=== PATIENT | male | born 1950 | race Caucasian/White ===

== ENCOUNTER 2021-12-29 09:44 | Outpatient (REF) | payer MEDICARE, OTHER, SELFPAY ==
[2021-12-29 10:13] LABS: Basophils Absolute Auto 0.03 K/uL (0.00-0.30); Basophils Percent Auto 0.3 % (0.0-3.0); Eosinophils Absolute Auto 0.48 K/uL (0.00-0.50); Eosinophils Percent Auto 5.4 % (0.0-7.0); Hematocrit 33.6 % (37.0-53.0); Hemoglobin* 11.1 gm/dL (13.5-17.5); Immature Granulocytes Abs Auto 0.01 K/uL (0.00-0.30); Immature Granulocytes Pct Auto 0.1 %; Lymphocytes Percent Auto 12.6 % (20-44); Mean Corpuscular HGB Conc 33 gm/dL (32-36); Mean Corpuscular Hemoglobin 30 pg (26-34); Mean Corpuscular Volume 92 fL (80-100); Monocytes Percent Auto 5.3 % (0.0-11.0); Neutrophils Percent Auto 76.3 % (42.0-72.0); Platelet Count* 317 K/uL (140-440); Red Blood Count 3.66 m/uL (4.30-5.90); White Blood Count* 8.94 K/uL (4.50-11.00)
[2021-12-29 10:14] LABS: Slide Review Reflex No
[2021-12-29 10:20] LABS: Chloride* 105 mmol/L (96-114); Potassium* 4.7 mmol/L (3.6-5.1); Sodium* 137 mmol/L (135-149)
[2021-12-29 10:23] LABS: Alanine Aminotransferase* 5 U/L (4-50); Carbon Dioxide* 24 mmol/L (20-32); Creatinine* 0.8 mg/dL (0.5-1.5); Estimated Glomerular Filt Rate 94 ml/min
[2021-12-29 10:24] LABS: Blood Urea Nitrogen* 24 mg/dL (7-30); Calcium* 9.1 mg/dL (8.4-10.6); Glucose* 144 mg/dL (60-115)
[2021-12-29 10:27] LABS: Hemoglobin A1C* 8.56 % (0-5.6)
== END 2021-12-29 09:45 | disposition home or self-care (01) ==
LOC: NPINS 09:44
PROVIDERS: PCP Surgery; Visit Provider Family Medicine
DX: E78.5 Hyperlipidemia, unspecified (principal); I25.10 Atherosclerotic heart disease of native coronary artery without angina pectoris; D64.9 Anemia, unspecified; E10.59 Type 1 diabetes mellitus with other circulatory complications
CPT/HCPCS: 80048; 83036; 84460; 85025

== ENCOUNTER 2022-01-13 11:57 | Outpatient (CLI) | payer MEDICARE, OTHER, SELFPAY | END 2022-01-13 11:58 | disposition home or self-care (01) | LOC: AMB 01-22 09:26 | PROVIDERS: PCP Surgery; Visit Provider Family Medicine | DX: R41.82 Altered mental status, unspecified (principal) | CPT/HCPCS: A0425; A0426; A0429 ==

== ENCOUNTER 2022-01-13 12:30 | Emergency (ER) | payer MEDICARE, OTHER, SELFPAY ==
[2022-01-13 12:43] VITALS: BP 124/65; PULSE 63; RESP 18; TEMP 36.9; O2SAT 96; BMI 21.3
--- NOTE | 2022-01-13 13:19 | CRLHL7_ITS ---
For Patients: As a result of the Cures Act, medical imaging exams and procedure reports are released immediately into your electronic medical record. You may view this report before your referring provider. If you have questions, please contact your health care provider. INDICATION: COVID. TECHNIQUE: Chest 1 views. COMPARISON: Chest x-ray from 10/22/2019. FINDINGS: Lungs: Low lung volumes limits evaluation and results in vascular crowding. No focal consolidation. Pleura: No pleural effusion or pneumothorax. Heart and Mediastinum: The cardiomediastinal silhouette is normal. The vessels are unremarkable. Bones: Unremarkable. Partially visualized left shoulder arthroplasty. IMPRESSION: No acute cardiopulmonary disease. Dictated by Thiago Fraga MD @ 01/13/2022 1:54:54 PM (Electronically Signed)
--- NOTE | 2022-01-13 13:23 | ED_ITS ---
HPI - General Adult General Time Seen by Provider: 13:23 Date Seen: 01/13/22 Chief complaint: Diabetic Related Problem Stated complaint: Hypoglycemia Time Seen by Provider: 01/13/22 12:43 Source: EMS Mode of arrival: EMS Limitations: physical limitation History of Present Illness HPI narrative: Patient is a 71-year-old white male who is in the memory care unit at [facility], he is diabetic, and had unresponsive episode this morning where his blood sugar was low in the 50s, paramedics gave him glucagon and D10 and he got markedly improved his blood sugar here is in the 80s he has a history of delusional disorder major depressive disorder Parkinson's disease he has a DNR order on his correction information. His 2 sons are here and we discussed his situation. Gerber is actually better now he is awake talking, ?asking to go home and ?. The patient was diagnosed with COVID on Tuesday, he has had no significant fevers his cough seemed to be a little bit better. Apparently did eat this morning and has been receiving insulin. Related Data Home Medications Medication Instructions Recorded Confirmed acetaminophen 500 mg tablet mg 01/13/22 aspirin 81 mg chewable tablet 01/13/22 atorvastatin 40 mg tablet mg 01/13/22 carbidopa 25 mg-levodopa 100 mg tab 01/13/22 tablet diclofenac sodium 1 % topical gel topical 01/13/22 insulin glargine 100 unit/mL (3 unit subcut 01/13/22 mL) subcutaneous pen (Lantus Solostar U-100 Insulin) insulin lispro 100 unit/mL subcut 01/13/22 subcutaneous pen lansoprazole 30 mg capsule,delayed mg 01/13/22 release melatonin 3 mg tablet mg 01/13/22 naproxen 500 mg tablet mg 01/13/22 pramipexole 0.25 mg tablet mg 01/13/22 quetiapine 25 mg tablet mg 01/13/22 trazodone 50 mg tablet mg 01/13/22 Review of Systems Narrative: Unable to obtain secondary to patient's cognitive condition PFSH PFSH Social History Smoking Status: Never smoker Do you use any of these nicotine containing products: None Second hand tobacco smoke exposure: No How often do you have a drink containing alcohol: never How often do you have six or more drinks on one occasion: Never AUDIT-C Alcohol total score: 0 Non-prescribed substance use: denies use service: No Exam Narrative: Exam Narrative: Objective: Vital signs unremarkable O2 sat is excellent at 96% patient is afebrile Gerber's alert, opens his eyes, talks, states ?I would like to get out of here?. When asked about pain he denies any Pulses regular Abdomen benign Extremities good perfusion Neurologic grossly nonfocal Const: Vital Signs, click to edit/add: Vital Signs - 24 hr 01/13/22 12:43 Temperature 98.4 F Pulse Rate [Left P ulse Oximeter] 63 Respiratory Rate 18 Blood Pressure [Le ft Upper Arm] 124/65 Pulse Oximetry 96 Oxygen Delivery Me thod Room Air Course Vital Signs Vital signs: Initial Vital Signs Temperature 98.4 F 01/13/22 12:43 Temperature Source Temporal Artery Scan 01/13/22 12:43 Pulse Rate 63 01/13/22 12:43 Pulse Rhythm 01/13/22 12:43 Pulse Strength 3+ Normal 01/13/22 12:43 Respiratory Rate 18 01/13/22 12:43 Blood Pressure 124/65 01/13/22 12:43 Blood Pressure Mean 84 01/13/22 12:43 Blood Pressure Position Sitting 01/13/22 12:43 Pulse Oximetry 96 01/13/22 12:43 Oxygen Delivery Method 01/13/22 12:43 Vital Signs Temperature 98.4 F 01/13/22 12:43 Pulse Rate 63 01/13/22 12:43 Respiratory Rate 18 01/13/22 12:43 Blood Pressure 124/65 01/13/22 12:43 Pulse Oximetry 96 01/13/22 12:43 Oxygen Delivery Method 01/13/22 12:43 Temperature 98.4 F 01/13/22 12:43 Pulse Rate 63 01/13/22 12:43 Respiratory Rate 18 01/13/22 12:43 Blood Pressure 124/65 01/13/22 12:43 Pulse Oximetry 96 01/13/22 12:43 Oxygen Delivery Method 01/13/22 12:43 Medical Decision Making MDM Narrative Medical decision making narrative: The patient is a 71 white male with Parkinson's in delusional issues with a unresponsive episode this morning likely related to hypoglycemia. He has not really been eating much since the COVID apparently and his blood sugar was lower he was given D10 and glucagon and got better. I think will allow him to be here get some IV fluid, see if he can eat something. Will check a chest x-ray and labs, give a L of IV fluid. I discussed his case with his sons were in agreement with the plan. They agree with continuing DNR planning. Do wish a workup as mentioned above. Disposition pending his findings, if he feels x-ray looks reasonable and his labs look reassuring and he can eat I think we can along go back, if not hospitalization. I think at this 0.2 would be marcelo to hold his insulin and just monitor his blood sugars and keep his primary care doctor informed of his situation, certainly I would rather have him be little hyperglycemic now than hypoglycemic if he is not eating. Addendum: The patient's chest x-ray by my read looks unremarkable, Radiology confirms. CBC looks with a mild elevation in white blood cell count consistent with his COVID infection. He is sitting up adequately and he is able to take some fluid. Will attempt to get him to eat and recheck his blood sugar shortly. If he is doing well and his labs look reassuring I think it trying go back to his home. Electrolytes look unremarkable as well. Potassium low normal. Would recommend the patient hold his insulin at this time as he has been eating intermittently, he is able to eat here as well as drink orange juice. Will long to go back to his home will make arrangements, staff will notify his son's. Blood glucose was rechecked in the ER prior to discharge it was 123 Lab Data Labs: Lab Results 01/13/22 01/13/22 Range/Units 13:50 13:50 WBC 13.04 H (4.50-11.00) K/uL RBC 3.82 L (4.30-5.90) m/uL Hgb 11.2 L (13.5-17.5) gm/dL Hct 34.9 L (37.0-53.0) % MCV 91 (80-100) fL MCH 29 (26-34) pg MCHC 32 (32-36) gm/dL RDW Coeff of Reji 12.8 (11.5-15.5) % Plt Count 295 (140-440) K/uL Neut % (Auto) 86.8 H (42.0-72.0) % Lymph % (Auto) 7.4 L (20-44) % Culberson % (Auto) 5.2 (0.0-11.0) % Eos % (Auto) 0.4 (0.0-7.0) % Baso % (Auto) 0.1 (0.0-3.0) % Neut # (Auto) 11.30 H (1.7-7.0) K/uL Lymph # (Auto) 1.00 (0.90-2.90) K/uL [place]berson # (Auto) 0.70 (0.00-0.90) K/UL Eos # (Auto) 0.10 (0.00-0.50) K/uL Baso # (Auto) 0.00 (0.00-0.30) K/uL Abs Immat Gran (auto) 0.00 (0.00-0.30) K/uL Imm/Tot Granulo (auto) 0.1 % Sodium 141 (135-149) mmol/L Potassium 3.3 L (3.6-5.1) mmol/L Chloride 106 (96-114) mmol/L Carbon Dioxide 28 (20-32) mmol/L BUN 24 (7-30) mg/dL Creatinine 0.8 (0.5-1.5) mg/dL Estimated Creat Clear 59.98 Estimated GFR 94 ml/min Glucose 127 H (60-115) mg/dL Calcium 8.9 (8.4-10.6) mg/dL Total Bilirubin 0.5 (0.1-1.5) mg/dL Direct Bilirubin 0.2 (0.0-0.5) mg/dL AST 74 H (12-35) U/L ALT 14 (4-50) U/L Alkaline Phosphatase 76 (40-150) U/L Total Protein 6.8 (6.0-8.3) g/dL Albumin 3.9 (3.3-5.0) g/dL Discharge Plan Discharge Clinical Impression: Episode of unresponsiveness, Hypoglycemic reaction Additional Instructions: Hold insulin for now. Continue to monitor blood sugars. Light activity, fluids on a regular basis, small frequent meals. Update primary care provider in 24-48 hours with blood sugar results and general disposition. Return to ED as needed. Activity Level: Light activity Discharge Diet: Diabetic Prescriptions: No Action quetiapine 25 mg tablet Label Comments: TAKE 1 TABLET BY MOUTH AT BEDTIME atorvastatin 40 mg tablet Label Comments: TAKE 1 TABLET BY MOUTH AT BEDTIME trazodone 50 mg tablet Label Comments: TAKE 1 TABLET BY MOUTH AT BEDTIME melatonin 3 mg tablet Label Comments: TAKE 1 TABLET BY MOUTH AT BEDTIME acetaminophen 500 mg tablet Label Comments: TAKE 2 TABLETS (1000MG) BY MOUTH THREE TIMES DAILY lansoprazole 30 mg capsule,delayed release(DR/EC) Label Comments: TAKE 1 CAPSULE BY MOUTH EVERY MORNING pramipexole 0.25 mg tablet aspirin 81 mg tablet,chewable Label Comments: CHEW AND SWALLOW 1 TABLET BY MOUTH EVERY MORNING carbidopa-levodopa 25-100 mg tablet Label Comments: TAKE 1 AND 1/2 TABLETS BY MOUTH FOUR TIMES DAILY naproxen 500 mg tablet insulin lispro 100 unit/mL insulin pen SUBCUT insulin glargine [Lantus Solostar U-100 Insulin] 100 unit/mL (3 mL) insulin pen SUBCUT diclofenac sodium 1 % gel TOPICAL Follow Up/Referrals: Hermelindo Paiz MD [Primary Care Provider] -
[2022-01-13] MEDS: 0.9 % SODIUM CHLORIDE 1000 ml 1,000 ML 6000 ML IV (13:59)
[2022-01-13 14:02] LABS: Basophils Percent Auto 0.1 % (0.0-3.0); Eosinophils Percent Auto 0.4 % (0.0-7.0); Hematocrit 34.9 % (37.0-53.0); Hemoglobin* 11.2 gm/dL (13.5-17.5); Immature Granulocytes Pct Auto 0.1 %; Lymphocytes Percent Auto 7.4 % (20-44); Mean Corpuscular HGB Conc 32 gm/dL (32-36); Mean Corpuscular Hemoglobin 29 pg (26-34); Mean Corpuscular Volume 91 fL (80-100); Monocytes Percent Auto 5.2 % (0.0-11.0); Neutrophils Percent Auto 86.8 % (42.0-72.0); Platelet Count* 295 K/uL (140-440); RDW Coefficient of Variation % 12.8 % (11.5-15.5); Red Blood Count 3.82 m/uL (4.30-5.90); White Blood Count* 13.04 K/uL (4.50-11.00)
[2022-01-13 14:06] LABS: Slide Review Reflex No
[2022-01-13 14:26] LABS: Albumin* 3.9 g/dL (3.3-5.0)
[2022-01-13 14:27] LABS: Chloride* 106 mmol/L (96-114); Potassium* 3.3 mmol/L (3.6-5.1); Sodium* 141 mmol/L (135-149)
[2022-01-13 14:29] LABS: Aspartate Amino Transferase* 74 U/L (12-35); Bilirubin Direct* 0.2 mg/dL (0.0-0.5); Bilirubin Total* 0.5 mg/dL (0.1-1.5); Carbon Dioxide* 28 mmol/L (20-32); Creatinine* 0.8 mg/dL (0.5-1.5); Est. Creatinine Clearance* 59.98; Estimated Glomerular Filt Rate 94 ml/min; Total Protein* 6.8 g/dL (6.0-8.3)
[2022-01-13 14:30] LABS: Alanine Aminotransferase* 14 U/L (4-50); Alkaline Phosphatase* 76 U/L (40-150); Blood Urea Nitrogen* 24 mg/dL (7-30); Calcium* 8.9 mg/dL (8.4-10.6); Glucose* 127 mg/dL (60-115)
== END 2022-01-13 15:57 | disposition home or self-care (01) ==
PROVIDERS: Emergency Provider Family Medicine; PCP Surgery
DX: E11.649 Type 2 diabetes mellitus with hypoglycemia without coma (principal); Z79.4 Long term (current) use of insulin
CPT/HCPCS: 36415; 71045; 80048; 80076; 82962; 85025; 96360; 99284; J7030

== ENCOUNTER 2022-01-13 15:35 | Outpatient (CLI) | payer MEDICARE, OTHER, SELFPAY | END 2022-01-13 15:36 | disposition home or self-care (01) | LOC: AMB 01-22 09:38 | PROVIDERS: PCP Surgery; Visit Provider Family Medicine | DX: U07.1 COVID-19 (principal) | CPT/HCPCS: A0425; A0426 ==

== ENCOUNTER 2022-01-14 02:39 | Outpatient (CLI) | payer MEDICARE, OTHER, SELFPAY | END 2022-01-14 02:40 | disposition home or self-care (01) | LOC: AMB 01-22 10:17 | PROVIDERS: PCP Surgery; Visit Provider Family Medicine | DX: S09.93XA Unspecified injury of face, initial encounter (principal); R41.82 Altered mental status, unspecified; W18.30XA Fall on same level, unspecified, initial encounter; Y92.099 Unspecified place in other non-institutional residence as the place of occurrence of the external cause | CPT/HCPCS: A0425; A0427; A0429 ==

== ENCOUNTER 2022-01-14 02:53 | Emergency (ER) | payer MEDICARE, OTHER, SELFPAY ==
[2022-01-14 02:58] VITALS: BP 140/67; PULSE 65; TEMP 36.1; O2SAT 97
--- NOTE | 2022-01-14 03:24 | ED.FALL ---
HPI - Fall General Chief Complaint: Fall/Minor Trauma Stated Complaint: fall Time Seen by Provider: 01/14/22 03:14 Source: patient and EMS Mode of arrival: EMS History of Present Illness HPI Narrative: 71-year-old male with known history of Parkinson's disease, dementia and a diagnosis of COVID 4 days ago presents to the emergency department after a fall. He lives next door at a [facility] care facility. He was found on the floor responsive by staff. He had been evaluated earlier today after a brief episode of mild hypoglycemia. Extensive workup is reviewed. Notes are reviewed. He had mild leukocytosis at the time but no other localizing symptoms of infection besides COVID. He continues to have no dyspnea. He has persistent weakness. We were told that he is wheelchair bound at baseline and does not transfer without assistance. He is not complaining of any pain. He sleeping comfortably when I entered the room and arouses to voice to answer questions. Per EMS team, they did not get a report of any signs of obvious fracture or complaints of pain. There are abrasions present on his skin which the nursing staff reported to them was new. EMS team and our entire staff look at these and see a minimum of several days of healing and obviously these are not new. No new areas of bleeding, injury. He denies other acute concerns today. Per nursing staff from [facility], is at neurological baseline. Past medical history is pretty extensive notable for Parkinson's disease, dementia, diabetes. His medications are reviewed and unchanged from less than 24 hours ago. Surgical history, social history noted. He is DNR. Related Data Home Medications Medication Instructions Recorded Confirmed acetaminophen 500 mg tablet mg 01/13/22 aspirin 81 mg chewable tablet 01/13/22 atorvastatin 40 mg tablet mg 01/13/22 carbidopa 25 mg-levodopa 100 mg tab 01/13/22 tablet diclofenac sodium 1 % topical gel topical 01/13/22 insulin glargine 100 unit/mL (3 unit subcut 01/13/22 mL) subcutaneous pen (Lantus Solostar U-100 Insulin) insulin lispro 100 unit/mL subcut 01/13/22 subcutaneous pen lansoprazole 30 mg capsule,delayed mg 01/13/22 release melatonin 3 mg tablet mg 01/13/22 naproxen 500 mg tablet mg 01/13/22 pramipexole 0.25 mg tablet mg 01/13/22 quetiapine 25 mg tablet mg 01/13/22 trazodone 50 mg tablet mg 01/13/22 Allergies Allergy/AdvReac Type Severity Reaction Status Date / Time Penicillins Allergy Unknown Verified 01/14/22 03:02 Review of Systems Narrative: Patient denies times 12 systems. [facility] Social History Smoking Status: Never smoker Do you use any of these nicotine containing products: None Second hand tobacco smoke exposure: No How often do you have a drink containing alcohol: never How often do you have six or more drinks on one occasion: Never AUDIT-C Alcohol total score: 0 Non-prescribed substance use: denies use service: No Exam Const: Vital Signs, click to edit/add: Vital Signs - 24 hr 01/14/22 02:58 01/14/22 03:37 Temperature 97.0 F L Pulse Rate [Left P ulse Oximeter] 65 65 Blood Pressure [Ri ght Upper Arm] 140/67 H 145/83 H Pulse Oximetry 97 99 Oxygen Delivery Me thod Room Air Room Air Documenting provider has reviewed patient's vital signs: yes Other: Appears clean and well kept. Sleeping comfortably in arouses easily to voice. He can answer simple questions about pain but is confused on some details which long-term staff reported was his baseline to EMS. HENMT: Common normals: normocephalic Head and scalp: normocephalic Mouth: oral and palatal mucosa normal Other: No signs of tongue biting or dental injury Eye: Common normals: conjunctivae normal and no scleral icterus Conjunctiva: conjunctiva(e) normal Other: Normal visual gaze and tracking, pupils equal Neck & C-Spine: Other: Nontender cervical spine with normal rotation Resp: Common normals: normal respiratory effort, no use of accessory muscles and clear to auscultation bilaterally Auscultation: clear to auscultation bilaterally Cardio: Common normals: regular rate, regular rhythm, S1 normal heart sound, S2 normal heart sound, no murmurs and peripheral pulses 2+ throughout Rate: regular rate Rhythm: regular rhythm Heart sounds: S1 normal and S2 normal Peripheral pulses: pulses 2+ throughout GI: Common normals: Normal to inspection, nondistended, normoactive bowel sounds present and soft to palpation Palpation: soft Back & Pelvis: Other: Palpation of pelvis hips clavicles and shoulder girdles without tenderness. Flexed and rotated at the hip with no significant tenderness. Old surgical scarring noted on lateral left hip and knee. Certainly no deformity in these areas and as stated no point bony tenderness. I do not think any further workup in those areas will be beneficial. Extremity: Common normals: no pedal edema Neuro: Other: Tremor and rigidity consistent with known Parkinson's disease. He can move his upper extremities on command can wiggle his toes symmetrically on command. Will turn his head to voice and reposition himself gently for comfort in the bed. Certainly detect underlying dementia but no obvious focal acute deficits Skin: Narrative: Abrasions on the chest, forearms, bruise to left forehead, abrasion to left knee at least a few days old, healing well with no significant surrounding redness. As stated, none of these are new. They are in various stages of healing with the left knee being the most recent but does not appear consistent with having been torn within the last couple of hours as reported by Memory Care staff. This will be cleaned and dressed by our assessment technician. Discussed findings with patient. Course Course Hospital Course: Labs extensively reviewed from earlier today, no signs of new trauma or injury. Resting comfortably can answer questions reasonably with no localizing areas of pain. He is not hypoxic, tachycardic, hypotensive and his EKG is normal. He is DNR. I do not see any reason for further workup. My repeat exam is similar to my initial, repeated 15 minutes later. Discussed the abrasions on the left knee and how I suspect these may cause him more tenderness. He tells me stories about having surgeries on this side and that is consistent with his surgical scarring. I let him know that I do not think any further workup will be necessary in he nods in agreement drifts back to sleep. He has not been given any medication that would be distracting from injury tonight. Recommend transfer back to his memory care facility, continued fall precautions. If family has ongoing concerns for his safety, they should look into a higher level of care. It will be very difficult to prevent falls in this demented patient. Vital Signs Vital signs: Initial Vital Signs Temperature 97.0 F L 01/14/22 02:58 Temperature Source Temporal Artery Scan 01/14/22 02:58 Pulse Rate 65 01/14/22 02:58 Blood Pressure 140/67 H 01/14/22 02:58 Blood Pressure Mean 91 01/14/22 02:58 Blood Pressure Position Supine 01/14/22 02:58 Pulse Oximetry 97 01/14/22 02:58 Oxygen Delivery Method 01/14/22 02:58 Vital Signs Temperature 97.0 F L 01/14/22 02:58 Pulse Rate 65 01/14/22 02:58 Blood Pressure 140/67 H 01/14/22 02:58 Pulse Oximetry 97 01/14/22 02:58 Oxygen Delivery Method 01/14/22 02:58 Temperature 97.0 F L 01/14/22 02:58 Pulse Rate 65 01/14/22 03:37 Blood Pressure 145/83 H 01/14/22 03:37 Pulse Oximetry 99 01/14/22 03:37 Oxygen Delivery Method 01/14/22 03:37 MDM - Fall Medical Records Attestation: I reviewed the patient's medical records. Lab Data Attestation: I reviewed the patient's lab results. ECG Data Attestation: I personally reviewed and interpreted this ECG as follows: Prior ECG tracings: available for review Interpretation: Normal sinus rhythm with normal axis. No ST or T-wave abnormalities. Good R-wave progression. Discharge Plan Discharge Clinical Impression: Fall Patient Disposition: Xfer Other Condition: Stable Instructions: Fall Prevention for Older Adults (ED) Additional Instructions: Vital signs of blood sugars are stable. There do not appear to be any new injuries from the fall. The abrasions that were pointed out are in various stages of healing and none appear consistent with a new fall. Initial and repeat examinations did not reveal any point bony tenderness to the pelvis, hips, knees, spine or shoulders. Because of this, x-rays were not performed. EKG was normal. There is no reason to repeat the labs that were performed less than 24 hours ago since vitals are stable and he is not complaining of pain. I do have concerns about his ability to be cared for in this setting. It will be very difficult to prevent falls in this patient with dementia, he may require a higher level of care. He will continue to be weak due to his Parkinson's disease, cognitive issues and COVID. There is no hypoxia that would suggest a need for hospitalization. Continue previously written orders and plan of care. Apply antibiotic ointment and dressing to abrasions on knee only once daily for the next 10 days, all other lesions should heal without difficulty. Follow-up with primary care provider for any ongoing issues. Activity Level: Activity as Tolerated and Up with assist Discharge Diet: Regular Prescriptions: No Action quetiapine 25 mg tablet Label Comments: TAKE 1 TABLET BY MOUTH AT BEDTIME atorvastatin 40 mg tablet Label Comments: TAKE 1 TABLET BY MOUTH AT BEDTIME trazodone 50 mg tablet Label Comments: TAKE 1 TABLET BY MOUTH AT BEDTIME melatonin 3 mg tablet Label Comments: TAKE 1 TABLET BY MOUTH AT BEDTIME acetaminophen 500 mg tablet Label Comments: TAKE 2 TABLETS (1000MG) BY MOUTH THREE TIMES DAILY lansoprazole 30 mg capsule,delayed release(DR/EC) Label Comments: TAKE 1 CAPSULE BY MOUTH EVERY MORNING pramipexole 0.25 mg tablet aspirin 81 mg tablet,chewable Label Comments: CHEW AND SWALLOW 1 TABLET BY MOUTH EVERY MORNING carbidopa-levodopa 25-100 mg tablet Label Comments: TAKE 1 AND 1/2 TABLETS BY MOUTH FOUR TIMES DAILY naproxen 500 mg tablet insulin lispro 100 unit/mL insulin pen SUBCUT insulin glargine [Lantus Solostar U-100 Insulin] 100 unit/mL (3 mL) insulin pen SUBCUT diclofenac sodium 1 % gel TOPICAL Stand Alone Forms: [facility] Info Instructions
[2022-01-14 03:37] VITALS: BP 145/83; PULSE 65; O2SAT 99
--- NOTE | 2022-01-14 03:47 | ED.NURSE ---
Pt abrasions cleaned by INSPECTOR CIRCUITRY NEGATIVE with gauze and wound industrial sweeper cleaner spray. INSPECTOR CIRCUITRY NEGATIVE applied bacitracin and tegaderm to open abrasions on pt L knee, L elbow, and L shoulder.
--- NOTE | 2022-01-14 03:50 | ED.NURSE ---
Contact made with Brandee, aviation operations specialist RN. Informed MD exam found no injuries. Pt is cleared to go back to [facility].
== END 2022-01-14 04:15 | disposition other institution (70) ==
LOC: ED 03:37
PROVIDERS: Emergency Provider Family Medicine; PCP Surgery
DX: R53.1 Weakness (principal)
CPT/HCPCS: 93005; 99281

== ENCOUNTER 2022-01-14 14:34 | Outpatient (CLI) | payer MEDICARE, OTHER, SELFPAY | END 2022-01-14 14:35 | disposition home or self-care (01) | LOC: AMB 01-22 10:23 | PROVIDERS: PCP Surgery; Visit Provider Emergency Medicine | DX: R53.83 Other fatigue (principal); U07.1 COVID-19; E11.649 Type 2 diabetes mellitus with hypoglycemia without coma | CPT/HCPCS: A0425; A0429 ==

== ENCOUNTER 2022-01-14 14:56 | Inpatient (IN) | payer MEDICARE, OTHER, SELFPAY ==
[2022-01-14] VITALS (20 sets, daily range): BP systolic 128–164; BP diastolic 71–109; PULSE 70–81; RESP 18; TEMP 36.3–37; O2SAT 88–99; BMI 25.8; BMI 26.1
--- NOTE | 2022-01-14 16:10 | ED.GENADULT ---
HPI - General Adult General Time Seen by Provider: 16:10 Date Seen: 01/14/22 Chief complaint: Weakness Stated complaint: Covid, lethargy Time Seen by Provider: 01/14/22 16:04 Source: patient, RN notes reviewed and old records reviewed Mode of arrival: EMS Limitations: no limitations History of Present Illness HPI narrative: 71-year-old male who presents today with generalized weakness. Note 3rd visit in the past 24 hours with various weakness, fall. Patient was diagnosed with COVID on January 11 and was starting to feel better prior to yesterday. Related Data Home Medications Medication Instructions Recorded Confirmed acetaminophen 500 mg tablet mg 01/13/22 aspirin 81 mg chewable tablet 01/13/22 atorvastatin 40 mg tablet mg 01/13/22 carbidopa 25 mg-levodopa 100 mg tab 01/13/22 tablet diclofenac sodium 1 % topical gel topical 01/13/22 insulin glargine 100 unit/mL (3 unit subcut 01/13/22 mL) subcutaneous pen (Lantus Solostar U-100 Insulin) insulin lispro 100 unit/mL subcut 01/13/22 subcutaneous pen lansoprazole 30 mg capsule,delayed mg 01/13/22 release melatonin 3 mg tablet mg 01/13/22 naproxen 500 mg tablet mg 01/13/22 pramipexole 0.25 mg tablet mg 01/13/22 quetiapine 25 mg tablet mg 01/13/22 trazodone 50 mg tablet mg 01/13/22 Allergies Allergy/AdvReac Type Severity Reaction Status Date / Time Penicillins Allergy Unknown Verified 01/14/22 15:01 Review of Systems Status of ROS: Reports: 10 or more systems reviewed and unremarkable except as noted in History and below PFSH PFS Social History Smoking Status: Never smoker Do you use any of these nicotine containing products: None Second hand tobacco smoke exposure: No How often do you have a drink containing alcohol: never How often do you have six or more drinks on one occasion: Never AUDIT-C Alcohol total score: 0 Non-prescribed substance use: denies use service: No Exam Narrative: Exam Narrative: General: Well-developed and well-nourished, no acute distress Head: Atraumatic and normocephalic Eyes: Pupils are equal reactive, extraocular motions intact, conjunctiva clear ENT: External nose and ears are normal, posterior pharynx without erythema or exudate Neck: No midline cervical tenderness, full spontaneous range of motion the neck, trachea midline, no adenopathy Heart: Regular rate and rhythm no murmurs or thrills Lungs: Clear to auscultation bilaterally without wheezes or crackles Abdomen: Soft, nontender, nondistended with active bowel sounds Musculoskeletal: No tenderness, deformity, or edema Neurologic: Awake, alert, no gross focal neurologic deficits, cranial nerves intact as tested Psych: Mood and affect are appropriate Skin: No rashes, pale Const: Vital Signs, click to edit/add: Vital Signs - 24 hr 01/14/22 15:02 01/14/22 15:23 01/14/22 15:30 Temperature 97.3 F L Pulse Rate 80 71 Pulse Rate [Pulse Oximeter] 76 Respiratory Rate 18 Blood Pressure Blood Pressure [18 ] 131/71 Pulse Oximetry 98 99 98 Oxygen Delivery Me thod Room Air 01/14/22 15:37 01/14/22 16:00 01/14/22 16:02 Temperature Pulse Rate 72 72 70 Pulse Rate [Pulse Oximeter] Respiratory Rate Blood Pressure 152/83 H 154/87 H Blood Pressure [18 ] Pulse Oximetry 98 98 98 Oxygen Delivery Me thod 01/14/22 16:03 01/14/22 16:30 01/14/22 16:31 Temperature Pulse Rate 71 73 76 Pulse Rate [Pulse Oximeter] Respiratory Rate Blood Pressure 158/89 H Blood Pressure [18 ] Pulse Oximetry 98 93 88 Oxygen Delivery Me thod 01/14/22 17:00 01/14/22 17:01 Temperature Pulse Rate 75 75 Pulse Rate [Pulse Oximeter] Respiratory Rate Blood Pressure 164/86 H Blood Pressure [18 ] Pulse Oximetry 96 95 Oxygen Delivery Me thod Course Course Hospital Course: Patient seen and examined prior records reviewed. Patient is here for third visit in 24 hours various complaints related to weakness, was hypoglycemic previously but blood sugar is normal this time. No fever, no hypoxia. Patient is unable to provide much history. Per EMS, when they arrived patient's room and not been clean from on the dropped him off at about 2:00 a.m. this morning. Family is concerned about cared issues too fatigued to really take care of himself right now. Patient himself has no complaints but unreliable historian. Labs and head CT are ordered due to head injury prior, IV fluids initiated. Reevaluation(s) Reevaluation #1: Labs so far reassuring with normal white blood cell count, stable hemoglobin, normal basic metabolic panel other than glucose of 133. Troponin is negative. Urinalysis and head CT are pending. Time: 17:55 Reevaluation #2: Care discussed with Dr. Pena for admission. Time: 17:55 Vital Signs Vital signs: Initial Vital Signs Temperature 97.3 F L 01/14/22 15:02 Temperature Source Temporal Artery Scan 01/14/22 15:02 Pulse Rate 76 01/14/22 15:02 Pulse Rhythm 01/14/22 15:02 Respiratory Rate 18 01/14/22 15:02 Blood Pressure 131/71 01/14/22 15:02 Blood Pressure Mean 91 01/14/22 15:02 Blood Pressure Position Supine 01/14/22 15:02 Pulse Oximetry 98 01/14/22 15:02 Oxygen Delivery Method 01/14/22 15:02 Vital Signs Temperature 97.3 F L 01/14/22 15:02 Pulse Rate 76 01/14/22 15:02 Respiratory Rate 18 01/14/22 15:02 Blood Pressure 131/71 01/14/22 15:02 Pulse Oximetry 98 01/14/22 15:02 Oxygen Delivery Method 01/14/22 15:02 Temperature 97.3 F L 01/14/22 15:02 Pulse Rate 75 01/14/22 17:01 Respiratory Rate 18 01/14/22 15:02 Blood Pressure 164/86 H 01/14/22 17:01 Pulse Oximetry 95 01/14/22 17:01 Oxygen Delivery Method 01/14/22 15:02 Medical Decision Making Medical Records Medical records reviewed: Yes I reviewed the patient's medical records Lab Data Lab results reviewed: Yes I reviewed the patient's lab results Labs: Lab Results 01/14/22 01/14/22 01/14/22 Range/Units 16:26 16:50 16:50 WBC 7.00 (4.50-11.00) K/uL RBC 3.94 L (4.30-5.90) m/uL Hgb 11.5 L (13.5-17.5) gm/dL Hct 35.6 L (37.0-53.0) % MCV 90 (80-100) fL MCH 29 (26-34) pg MCHC 32 (32-36) gm/dL RDW Coeff of Reji 12.7 (11.5-15.5) % Plt Count 296 (140-440) K/uL Neut % (Auto) 71.3 (42.0-72.0) % Lymph % (Auto) 18.4 L (20-44) % Grady % (Auto) 6.6 (0.0-11.0) % Eos % (Auto) 3.3 (0.0-7.0) % Baso % (Auto) 0.1 (0.0-3.0) % Neut # (Auto) 4.99 (1.7-7.0) K/uL Lymph # (Auto) 1.30 (0.90-2.90) K/uL Grady # (Auto) 0.50 (0.00-0.90) K/UL Eos # (Auto) 0.23 (0.00-0.50) K/uL Baso # (Auto) 0.01 (0.00-0.30) K/uL Abs Immat Gran (auto) 0.02 (0.00-0.30) K/uL Imm/Tot Granulo (auto) 0.3 % Sodium 139 (135-149) mmol/L Potassium 4.3 (3.6-5.1) mmol/L Chloride 106 (96-114) mmol/L Carbon Dioxide 28 (20-32) mmol/L BUN 16 (7-30) mg/dL Creatinine 0.7 (0.5-1.5) mg/dL Estimated Creat Clear 68.94 Estimated GFR 98 ml/min Glucose 133 H (60-115) mg/dL Calcium 8.6 (8.4-10.6) mg/dL NT-Pro-B Natriuret Pep 464 H (0-125) PG/mL Urine Color (Yellow) Urine Appearance (Clear) Urine pH (5.0-8.5) Ur Specific [place] (1.000-1.030) Urine Protein (Negative) Urine Glucose (UA) (Negative) Urine Ketones (Negative) Urine Blood (Negative) Urine Nitrite (Negative) Urine Bilirubin (Negative) Urine Urobilinogen (0.2-1.0) Ur Leukocyte Esterase (Negative) Urine RBC (0-2) Urine WBC (0-5) Ur Squamous Epith Cells (None-Few) Urine Bacteria (None) POC Troponin I 0.01 (0.01-0.04) ng/ml 01/14/22 Range/Units 17:58 WBC (4.50-11.00) K/uL RBC (4.30-5.90) m/uL Hgb (13.5-17.5) gm/dL Hct (37.0-53.0) % MCV (80-100) fL MCH (26-34) pg MCHC (32-36) gm/dL RDW Coeff of Reji (11.5-15.5) % Plt Count (140-440) K/uL Neut % (Auto) (42.0-72.0) % Lymph % (Auto) (20-44) % [place] % (Auto) (0.0-11.0) % Eos % (Auto) (0.0-7.0) % Baso % (Auto) (0.0-3.0) % Neut # (Auto) (1.7-7.0) K/uL Lymph # (Auto) (0.90-2.90) K/uL [place] # (Auto) (0.00-0.90) K/UL Eos # (Auto) (0.00-0.50) K/uL Baso # (Auto) (0.00-0.30) K/uL Abs Immat Gran (auto) (0.00-0.30) K/uL Imm/Tot Granulo (auto) % Sodium (135-149) mmol/L Potassium (3.6-5.1) mmol/L Chloride (96-114) mmol/L Carbon Dioxide (20-32) mmol/L BUN (7-30) mg/dL Creatinine (0.5-1.5) mg/dL Estimated Creat Clear Estimated GFR ml/min Glucose (60-115) mg/dL Calcium (8.4-10.6) mg/dL NT-Pro-B Natriuret Pep (0-125) PG/mL Urine Color Yellow (Yellow) Urine Appearance Clear (Clear) Urine pH 8.0 (5.0-8.5) Ur Specific [place] 1.020 (1.000-1.030) Urine Protein Negative (Negative) Urine Glucose (UA) Negative (Negative) Urine Ketones 2+ A (Negative) Urine Blood Negative (Negative) Urine Nitrite Negative (Negative) Urine Bilirubin Negative (Negative) Urine Urobilinogen 0.2 (0.2-1.0) Ur Leukocyte Esterase Negative (Negative) Urine RBC 0-2 (0-2) Urine WBC 0-2 (0-5) Ur Squamous Epith Cells None (None-Few) Urine Bacteria None (None) POC Troponin I (0.01-0.04) ng/ml Imaging Data CT scan - head: Attestation: I have reviewed the pertinent imaging results. My impression: No acute intracranial findings Radiologist's impression: Impression: Age-related and chronic small-vessel disease changes of the brain without acute intracranial abnormality. Discharge Plan Discharge Clinical Impression: COVID, Diabetes, General weakness Patient Disposition: Admitted As Inpatient Condition: Stable
[2022-01-14 17:00] LABS: Basophils Absolute Auto 0.01 K/uL (0.00-0.30); Basophils Percent Auto 0.1 % (0.0-3.0); Eosinophils Absolute Auto 0.23 K/uL (0.00-0.50); Eosinophils Percent Auto 3.3 % (0.0-7.0); Hematocrit 35.6 % (37.0-53.0); Hemoglobin* 11.5 gm/dL (13.5-17.5); Immature Granulocytes Abs Auto 0.02 K/uL (0.00-0.30); Immature Granulocytes Pct Auto 0.3 %; Lymphocytes Percent Auto 18.4 % (20-44); Mean Corpuscular HGB Conc 32 gm/dL (32-36); Mean Corpuscular Hemoglobin 29 pg (26-34); Mean Corpuscular Volume 90 fL (80-100); Monocytes Percent Auto 6.6 % (0.0-11.0); Neutrophils Absolute Auto 4.99 K/uL (1.7-7.0); Neutrophils Percent Auto 71.3 % (42.0-72.0); Platelet Count* 296 K/uL (140-440); RDW Coefficient of Variation % 12.7 % (11.5-15.5); Red Blood Count 3.94 m/uL (4.30-5.90); Slide Review Reflex No
[2022-01-14] MEDS: 0.9 % SODIUM CHLORIDE 1000 ml 1,000 ML IV (17:04)
--- NOTE | 2022-01-14 17:04 | CRLHL7_ITS ---
For Patients: As a result of the Century Cures Act, medical imaging exams and procedure reports are released immediately into your electronic medical record. You may view this report before your referring provider. If you have questions, please contact your health care provider. Indication: Head injury, weakness Technique: Volumetric multidetector CT images of the head were obtained without the administration of low osmolar intravenous contrast. Comparison: CT head May 05, 2019 Findings: There is no intra-axial or extra-axial fluid collection. There is no mass effect or midline shift. There is age-related cortical atrophy with mild sulcal widening and ex vacuo dilatation of the lateral ventricles. There are chronic small vessel disease changes in the subcortical and periventricular white matter without lost andrew-white differentiation. The orbits and their contents are grossly within normal limits. The bony calvarium is grossly intact. There is moderate mucosal thickening seen throughout the paranasal sinuses. The mastoid air cells are well aerated. Impression: Age-related and chronic small-vessel disease changes of the brain without acute intracranial abnormality. Please note that all CT scans at this facility use dose modulation, iterative reconstruction, and/or weight-based dosing when appropriate to reduce radiation dose to as low as reasonably achievable. Dictated by Chava Pardo MD @ 01/14/2022 6:31:16 PM (Electronically Signed)
[2022-01-14 17:14] LABS: Chloride* 106 mmol/L (96-114); Potassium* 4.3 mmol/L (3.6-5.1); Sodium* 139 mmol/L (135-149)
[2022-01-14 17:15] LABS: Troponin, Point-of-Care* 0.01 ng/ml (0.01-0.04)
[2022-01-14 17:17] LABS: Blood Urea Nitrogen* 16 mg/dL (7-30); Carbon Dioxide* 28 mmol/L (20-32); Creatinine* 0.7 mg/dL (0.5-1.5); Est. Creatinine Clearance* 68.94; Estimated Glomerular Filt Rate 98 ml/min; Glucose* 133 mg/dL (60-115)
[2022-01-14 17:18] LABS: Calcium* 8.6 mg/dL (8.4-10.6)
[2022-01-14 17:27] LABS: NT Pro B Type NatriureticPept* 464 PG/mL (0-125)
--- NOTE | 2022-01-14 18:01 | W.PC.EDHO ---
Primary Language: Kazakh Preferred Language: Orientation Status: [] Alert & Oriented [] Slight Confusion [x] Known Dx Dementia Transfers By: [] Assist of 1 [x] Assist of 2 [] Lift Active Medications Discontinued Medications Generic Name Dose Route Start Last Admin Trade Name Coy PRN Reason Stop Dose Admin Sodium Chloride 1,000 mls @ 1,000 mls/hr 01/14/22 16:30 01/14/22 17:04 0.9 % Sodium Chloride 1000 Ml IV 01/14/22 17:29 1,000 mls/hr .Q1H SRINIVAS Administration Description of Symptoms ED Triage Present Problem known covid positive-since 01/10/22. [facility] does need memory care. has been frequenting the ed, 3 times in the last 24 hours. has had low bs, at 1207 bs was 66. insulin is being held. was seen this am at 0200 for a fall. has multiple scrapes and abrasion. has been incontinent of stool and urine. was too weak to stand this afternoon to be cleaned up. family wants him admitted. needs more care than the assistive living could provide. ED Triage Date of Onset of 01/13/22 Symptoms Female History Patient IV Insertion/Site Date of IV Line Insertion [ 01/14/22 Right Hand] Oxygen Administration Pulse Oximetry 95 Pulse Oximetry 96 Pulse Oximetry 88 Pulse Oximetry 93 Pulse Oximetry 98 Pulse Oximetry 98 Pulse Oximetry 98 Pulse Oximetry 98 Pulse Oximetry 98 Pulse Oximetry 99 Pulse Oximetry 98 Oxygen Delivery Method Room Air Cardiac Monitoring EKG Method 12 Lead
[2022-01-14 18:09] LABS: Appearance Urine Clear (Clear); Bilirubin Urine Negative (Negative); Blood Urine Negative (Negative); Color Urine Yellow (Yellow); Glucose Urine Negative (Negative); Ketones Urine 2+ (Negative); Leukocyte Esterase Urine Negative (Negative); Nitrite Urine Negative (Negative); Protein Urine Negative (Negative); Urobilinogen Urine 0.2 (0.2-1.0)
[2022-01-14 18:28] LABS: RBC Urine 0-2 (0-2); WBC Urine 0-2 (0-5)
--- NOTE | 2022-01-14 19:27 | PM.IMHP1 ---
Hospitalist- H&P: HPI History of Present Illness Time Seen by Provider: 18:30 Date Seen: 01/14/22 Chief complaint: Covid, lethargy Narrative: Gerber Greco is a 71 year old man who presents to our Emergency Department for assessment for the 3rd time in less than 24 hours. Initially he presented with symptomatic hypoglycemia. Insulin doses were adjusted and he was no longer symptomatic with hypoglycemia at time of discharge back to the assisted living center. Secondly he returned earlier this morning after a fall in which he sustained abrasions and assessment was otherwise unremarkable. He was again return back to the assisted living center. This afternoon he presents so weak that he can not even move out of his recliner chair. The EMS staff who were summoned to bring him in this afternoon or the same individuals who dropped him off earlier this morning after he was seen in the emergency department, and they note that he was in the same position that they put him in when they brought him back later this morning. Patient was in his usual state of health until 01/11/2022 when he was not feeling well and he was tested for COVID-19 and found to be infected with the SARS-CoV-2. Was not offered treatment. Has not received any treatment. Nevertheless his weakness has been progressive as briefly outlined above. This afternoon he is so weak that he can hardly move. He needs total assist with transferring from supine to sitting, and does not even to transfer from sitting to standing despite assistance. Review of Systems Status of ROS: Reports: 10 or more systems reviewed and unremarkable except as noted in History and below Narrative: He tells me he can not take it anymore. He tells me he just wants to . Does have a DNR DNI resuscitation status. He reiterates this. I speak with his eldest son via telephone, who indicates that is exactly his father's intervention plan. Is not suicidal or homicidal. He makes it clear nonetheless that he is ready to if need be. Denies any chest heaviness, pressure, tightness, or pain. Denies dyspnea at rest or paroxysmal nocturnal dyspnea orthopnea. Denies syncope or near-syncope. Denies nausea or vomiting. Tells me he is hungry and wants to eat. Denies palpitations or chest fluttering. No claudication. Bowel and bladder function satisfactory. Denies dysuria, urgency, frequency, hematuria. Denies diarrhea or constipation. No focal motor neurologic deficits per se. [facility] Medical History (Updated 01/14/22 @ 19:40 by Chinedu Pena MD) Adenomatous colon polyp Barretts esophagus Coronary artery disease Diabetes mellitus type 2 with complications Hyperlipidemia Osteoarthritis Parkinson disease Sciatica Sensorineural hearing loss Unstable gait Surgical History H/O vasectomy History of carpal tunnel release Status post hip surgery Family History Father Diabetes High blood pressure Mother Diabetes Stroke Social History Smoking Status: Never smoker Do you use any of these nicotine containing products: None Second hand tobacco smoke exposure: No How often do you have a drink containing alcohol: never How often do you have six or more drinks on one occasion: Never AUDIT-C Alcohol total score: 0 Non-prescribed substance use: denies use service: No Meds Home Medications and Allergies Home Medications Medication Instructions Recorded Confirmed Type acetaminophen 500 mg tablet mg 01/13/22 History aspirin 81 mg chewable tablet 01/13/22 History atorvastatin 40 mg tablet mg 01/13/22 History carbidopa 25 mg-levodopa 100 mg tab 01/13/22 History tablet diclofenac sodium 1 % topical gel topical 01/13/22 History insulin glargine 100 unit/mL (3 unit subcut 01/13/22 History mL) subcutaneous pen (Lantus Solostar U-100 Insulin) insulin lispro 100 unit/mL subcut 01/13/22 History subcutaneous pen lansoprazole 30 mg capsule,delayed mg 01/13/22 History release melatonin 3 mg tablet mg 01/13/22 History naproxen 500 mg tablet mg 01/13/22 History pramipexole 0.25 mg tablet mg 01/13/22 History quetiapine 25 mg tablet mg 01/13/22 History trazodone 50 mg tablet mg 01/13/22 History Allergies Allergy/AdvReac Type Severity Reaction Status Date / Time Penicillins Allergy Unknown Verified 01/14/22 15:01 Exam Narrative: Exam Narrative: Appears tired. Speech is soft and mumbled, not new. Alert and oriented to self and place not to time and only in part to situation. Articulate and cooperative. Difficult to understand his sentences because of his mobile speech but can make out most of it. Lungs are clear to auscultation. Heart tones with regular rhythm. Extremities without edema. Has multiple abrasions on various areas on his body from recent falls. Const: Vital Signs, click to edit/add: Vital Signs - 24 hr 01/14/22 15:02 01/14/22 15:23 01/14/22 15:30 Temperature 97.3 F L Pulse Rate 80 71 Pulse Rate [Pulse Oximeter] 76 Respiratory Rate 18 Blood Pressure Blood Pressure [18 ] 131/71 Pulse Oximetry 98 99 [facility] 01/14/22 15:37 01/14/22 16:00 01/14/22 16:02 Temperature Pulse Rate 72 72 70 Pulse Rate [Pulse Oximeter] Respiratory Rate Blood Pressure 152/83 H 154/87 H Blood Pressure [18 ] Pulse Oximetry 98 98 98 Oxygen Delivery [facility] 01/14/22 16:03 01/14/22 16:30 01/14/22 16:31 Temperature Pulse Rate 71 73 76 Pulse Rate [Pulse Oximeter] Respiratory Rate Blood Pressure 158/89 H Blood Pressure [18 ] Pulse Oximetry 98 93 88 Oxygen Delivery [facility] 01/14/22 17:00 01/14/22 17:01 01/14/22 17:02 Temperature Pulse Rate 75 75 75 Pulse Rate [Pulse Oximeter] Respiratory Rate Blood Pressure 164/86 H Blood Pressure [18 ] Pulse Oximetry 96 95 97 Oxygen Delivery [facility] 01/14/22 17:30 01/14/22 17:32 01/14/22 18:03 Temperature Pulse Rate 80 78 80 Pulse Rate [Pulse Oximeter] Respiratory Rate Blood Pressure 160/82 H Blood Pressure [18 ] Pulse Oximetry 98 98 99 Oxygen Delivery [facility] 01/14/22 18:32 Temperature Pulse Rate Pulse Rate [Pulse Oximeter] Respiratory Rate Blood Pressure 160/109 H Blood Pressure [18 ] Pulse Oximetry [facility] - H&[facility]: Result Labs Labs: Short CBC 01/14/22 Range/Units 16:50 WBC 7.00 (4.50-11.00) K/uL Hgb 11.5 L (13.5-17.5) gm/dL Hct 35.6 L (37.0-53.0) % Plt Count 296 (140-440) K/uL BMP 01/14/22 16:50 Sodium 139 Potassium 4.3 Chloride 106 Carbon Dioxide 28 BUN 16 Creatinine 0.7 Glucose 133 H Calcium 8.6 Urine 01/14/22 Range/Units 17:58 Urine Color Yellow (Yellow) Urine Appearance Clear (Clear) Urine pH 8.0 (5.0-8.5) Ur Specific [place] 1.020 (1.000-1.030) Urine Protein Negative (Negative) Urine Glucose (UA) Negative (Negative) Imaging CT scan - head: Attestation: I have reviewed the pertinent imaging results. Radiologist's impression: Age-related changes only otherwise unremarkable. Assessment and Plan Assessment and plan (1) General weakness: Status: Acute (2) COVID: Problem comment: Diagnosed 01/11/2022 Status: Acute (3) Fall: Problem comment: 01/14/2022, sustained minor abrasions only Status: Acute (4) Hypoglycemic reaction: Status: Acute (5) Episode of unresponsiveness: Problem comment: Due to severe hypoglycemia 01/13/2022 Status: Acute (6) Parkinson disease: Status: Acute (7) Diabetes mellitus type 2 with complications: Problem comment: Diagnosed 1998. Now insulin requiring. Status: Acute (8) Diabetes: Status: Acute (9) Unstable gait: Status: Acute Plan 1. Reviewed impression with patient. 2. Called and reviewed impression and plan with patient's son, Marcel, [phone]. 3. Patient's son, Marcel, recommended that for the next few days we contact his brother Jaden, [phone]. 4. Admit to observation. 5. Physical therapy, occupational therapy, social service technician to assist with assessing and establishing safe discharge disposition plan. 6. Will go ahead and initiate remdesivir for 3 day dosing. Reviewed pros and cons with his son Marcel who concurs. 7. Continue with other supportive medications. 8. Family's interpretation is that the [facility] staff may not be able to help their father due to increasing services that he is requiring. Family is ready to move ahead with transferring to a care home when such a place becomes available if in fact the [facility] staff say they were not able to help the patient anymore. 9. Patient also agreeable with above stated plans and recommendations.
[2022-01-14] MEDS: PRAMIPEXOLE 0.5 MG TABLET PO (21:53)
[2022-01-14] MEDS: CARBIDOPA-LEVODOPA 25-100 TABLET 1.5 TAB PO (21:53)
[2022-01-14] MEDS: 0.9 % SODIUM CHLORIDE 250 ml IV (23:03)
[2022-01-14] MEDS: OLANZapine 5 MG TAB.RAPDIS PO (23:03)
[2022-01-14] MEDS: SODIUM CHLORIDE 0.9 % (FLUSH) 10 ML SYRINGE 5 ML IVF (23:04)
--- NOTE | 2022-01-14 23:37 | PC.NURSE ---
End of Shift: Patient admitted to 274. Alert to self. Pleasant and cooperative upon arrival. Afebrile. O2 sats 97% on room air. Denies pain. Abrasions to left forehead, shoulder, knee and right chest as well as scattered scabs to bilateral lower extremities. Patient tolerating regular diet with no nausea. Patient became agitated around 2100 pulling off gown, pulling at IV, and using profanity towards staff. Patient stated he needs to leave and pick sons up from [facility]. Attempted to call son Jaden and patient grabbed phone from this nurse. Frequent redirection and reassurance needed. MD updated and in to see patient. Able to speak with son and reassured that we are here to help him. Patient cooperative with cares for the remainder of the shift. Attempted to use BSC with 2 assist, walker and gait belt, but patient unable to stand. Incontinent x2 this shift, groin reddened and cream applied. Frequent turn and reposition.
[2022-01-15 03:00] VITALS: BP 155/86; PULSE 78; RESP 18; TEMP 37.1; O2SAT 96
[2022-01-15 06:11] LABS: HCO3 VBG 27 mmol/L (21-28); Lactate* 0.9 mmol/L (0.5-1.9); PCO2 VBG 42 mmHG (40-50); PO2 VBG 42.2 mmHG (25-47)
[2022-01-15 06:16] LABS: Hematocrit 35.2 % (37.0-53.0); Hemoglobin* 11.5 gm/dL (13.5-17.5); Mean Corpuscular HGB Conc 33 gm/dL (32-36); Mean Corpuscular Hemoglobin 29 pg (26-34); Mean Corpuscular Volume 89 fL (80-100); Platelet Count* 328 K/uL (140-440); Red Blood Count 3.94 m/uL (4.30-5.90)
[2022-01-15 06:18] LABS: Slide Review Reflex No
[2022-01-15 06:34] LABS: Iron* 41 ug/dL (49-181)
[2022-01-15 06:44] LABS: NT Pro B Type NatriureticPept* 416 PG/mL (0-125)
[2022-01-15 06:45] LABS: Percent Iron Saturation 17 % (20-50); Total Iron Binding Capacity 242 ug/dL (261-462)
[2022-01-15 06:47] LABS: Cholesterol* 113 mg/dL (90-199); HDL Cholesterol* 34 mg/dL (>=40); LDL Cholesterol Calculated 60 mg/dL (<100); Phosphorus* 2.6 mg/dL (2.5-4.5); Triglycerides* 93 mg/dL (40-149)
[2022-01-15 06:52] LABS: Procalcitonin* 0.66 ng/mL (<0.50)
[2022-01-15 06:55] LABS: Troponin I* < 0.01 ng/mL (0.01-0.04)
[2022-01-15 07:00] VITALS: BP 123/88; PULSE 80; RESP 16; TEMP 36.9; O2SAT 97
--- NOTE | 2022-01-15 07:13 | PC.NURSE ---
23-07: pt slept majority of the shift. Incont. T&R. Pt oriented to name. Unable to reorientate. VSS.
[2022-01-15] MEDS: OMEPRAZOLE 20 MG CAPSULE DR PO (07:53)
[2022-01-15] MEDS: CARBIDOPA-LEVODOPA 25-100 TABLET 1.5 TAB PO ×4 (08:31→21:07)
[2022-01-15] MEDS: SODIUM CHLORIDE 0.9 % (FLUSH) 10 ML SYRINGE 5 ML IVF ×2 (08:32→21:08)
[2022-01-15 11:00] VITALS: BP 149/80; PULSE 92; RESP 16; TEMP 36.9; O2SAT 97
--- NOTE | 2022-01-15 11:42 | PC.SOCIAL ---
Discharge planning- Phone call to [facility] in admissions to see if they would take a Covid positive pt since they are in Covid outbreak. [facility] states that admissions are on hold until next week due to the large number of Covid positive pts. Social Work will follow up as necessary.
--- NOTE | 2022-01-15 12:09 | P.IMPN_ITS ---
Progress Note: A&P Assessment and plan (1) COVID: Problem details: Diagnosed 01/11/2022. Started remdesivir 01/14/22. No hypoxia, treat with remdesivir for 3 days, currently day 2/3. 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 Status: Acute Assessment and Plan: Blood sugars increased dramatically from admission. Change to diabetic diet. Continue long-acting insulin at current dosing and insulin sliding scale with meals and at bedtime. (5) Episode of unresponsiveness: Problem details: Due to severe hypoglycemia 01/13/2022 Status: Acute (6) Hypoglycemic reaction: Status: Acute (7) Fall: Problem details: 01/14/2022, sustained minor abrasions only Status: Acute (8) General weakness: Problem details: PT and OT Status: Acute Subjective Time Seen by Provider: 12:10 Date Seen: 01/15/22 Interval history: Gerber is not moving even in the bed much, according to his nurse. She has to feed him because he has not been getting the food to his mouth. Also, she notes that when there is no food in front of him, he has been making motions as if he is feeding himself with a fork. Gerber is a heavy 2 assist right now. He mumbles about complaints not related to health and is confused. Exam Narrative: Exam Narrative: General: No acute distress. Mumbling. Awake, alert, oriented to self. Confused. No pallor. No jaundice. Oropharynx: Clear. Mucous membranes moist. Cardiovascular: Regular rate and rhythm. Respiratory: Clear to auscultation bilaterally. No wheezes or crackles. Abdomen: Bowel sounds present. Soft, nondistended, nontender. Extremities: No pedal edema. Skin: Multiple abrasions. Const: Vital Signs, click to edit/add: Vital Signs - 24 hr 01/14/22 15:02 01/14/22 15:23 01/14/22 15:30 Temperature 97.3 F L Pulse Rate 80 71 Pulse Rate [Left P ulse Oximeter] Pulse Rate [Pulse Oximeter] 76 Respiratory Rate 18 Blood Pressure Blood Pressure [18 ] 131/71 Blood Pressure [Le ft Arm] Blood Pressure [Ri ght Arm] Pulse Oximetry 98 99 98 Oxygen Delivery Me thod Room Air 01/14/22 15:37 01/14/22 16:00 01/14/22 16:02 Temperature Pulse Rate 72 72 70 Pulse Rate [Left P ulse Oximeter] Pulse Rate [Pulse Oximeter] Respiratory Rate Blood Pressure 152/83 H 154/87 H Blood Pressure [18 ] Blood Pressure [Le ft Arm] Blood Pressure [Ri ght Arm] Pulse Oximetry 98 98 98 Oxygen Delivery Me thod 01/14/22 16:03 01/14/22 16:30 01/14/22 16:31 Temperature Pulse Rate 71 73 76 Pulse Rate [Left P ulse Oximeter] Pulse Rate [Pulse Oximeter] Respiratory Rate Blood Pressure 158/89 H Blood Pressure [18 ] Blood Pressure [Le ft Arm] Blood Pressure [Ri ght Arm] Pulse Oximetry 98 93 88 Oxygen Delivery Me thod 01/14/22 17:00 01/14/22 17:01 01/14/22 17:02 Temperature Pulse Rate 75 75 75 Pulse Rate [Left P ulse Oximeter] Pulse Rate [Pulse Oximeter] Respiratory Rate Blood Pressure 164/86 H Blood Pressure [18 ] Blood Pressure [Le ft Arm] Blood Pressure [Ri ght Arm] Pulse Oximetry 96 95 97 Oxygen Delivery Me thod 01/14/22 17:30 01/14/22 17:32 01/14/22 18:03 Temperature Pulse Rate 80 78 80 Pulse Rate [Left P ulse Oximeter] Pulse Rate [Pulse Oximeter] Respiratory Rate Blood Pressure 160/82 H Blood Pressure [18 ] Blood Pressure [Le ft Arm] Blood Pressure [Ri ght Arm] Pulse Oximetry 98 98 99 Oxygen Delivery Me thod 01/14/22 18:32 01/14/22 19:55 01/14/22 19:56 Temperature 98.4 F 98.4 F Pulse Rate Pulse Rate [Left P ulse Oximeter] 81 81 Pulse Rate [Pulse Oximeter] Respiratory Rate 18 18 Blood Pressure 160/109 H Blood Pressure [18 ] Blood Pressure [Le ft Arm] 142/72 H 142/72 H Blood Pressure [Ri ght Arm] Pulse Oximetry 97 97 Oxygen Delivery Me thod Room Air Room Air 01/14/22 19:15 01/14/22 23:00 01/14/22 23:00 Temperature Pulse Rate Pulse Rate [Left P ulse Oximeter] 72 Pulse Rate [Pulse Oximeter] Respiratory Rate 18 18 18 Blood Pressure Blood Pressure [18 ] Blood Pressure [Le ft Arm] Blood Pressure [Ri ght Arm] Pulse Oximetry 97 96 Oxygen Delivery Me thod Room Air Room Air 01/14/22 23:00 01/15/22 03:00 01/15/22 07:00 Temperature 98.6 F 98.7 F 98.4 F Pulse Rate Pulse Rate [Left P ulse Oximeter] 72 78 80 Pulse Rate [Pulse Oximeter] Respiratory Rate 18 18 16 Blood Pressure Blood Pressure [18 ] Blood Pressure [Le ft Arm] 128/78 155/86 H 123/88 Blood Pressure [Ri ght Arm] Pulse Oximetry 96 96 97 Oxygen Delivery Pr thod Room Air Room Air Room Air 01/15/22 07:00 01/15/22 07:00 01/15/22 11:00 Temperature 98.4 F Pulse Rate Pulse Rate [Left P ulse Oximeter] 80 92 Pulse Rate [Pulse Oximeter] Respiratory Rate 16 16 16 Blood Pressure Blood Pressure [18 ] Blood Pressure [Le ft Arm] Blood Pressure [Ri ght Arm] 149/80 H Pulse Oximetry 97 97 Oxygen Delivery Me thod Room Air Room Air Documenting provider has reviewed patient's vital signs: yes Labs Labs: Laboratory Results - last 24 hr 01/14/22 01/14/22 01/14/22 16:26 16:50 16:50 WBC 7.00 RBC 3.94 L Hgb 11.5 L Hct 35.6 L MCV 90 MCH 29 MCHC 32 RDW Coeff of Reji 12.7 Plt Count 296 Neut % (Auto) 71.3 Lymph % (Auto) 18.4 L Sharp % (Auto) 6.6 Eos % (Auto) 3.3 Baso % (Auto) 0.1 Neut # (Auto) 4.99 Lymph # (Auto) 1.30 Sharp # (Auto) 0.50 Eos # (Auto) 0.23 Baso # (Auto) 0.01 Abs Immat Gran (auto) 0.02 Imm/Tot Granulo (auto) 0.3 VBG pH VBG pCO2 VBG pO2 VBG HCO3 Sodium 139 Potassium 4.3 Chloride 106 Carbon Dioxide 28 BUN 16 Creatinine 0.7 Estimated Creat Clear 68.94 Estimated GFR 98 Glucose 133 H Lactate Calcium 8.6 Phosphorus Magnesium Iron TIBC % Saturation Troponin I NT-Pro-B Natriuret Pep 464 H Triglycerides Cholesterol LDL Cholesterol, Calc HDL Cholesterol Procalcitonin TSH Urine Color Urine Appearance Urine pH Ur Specific Montgomery Urine Protein Urine Glucose (UA) Urine Ketones Urine Blood Urine Nitrite Urine Bilirubin Urine Urobilinogen Ur Leukocyte Esterase Urine RBC Urine WBC Ur Squamous Epith Cells Urine Bacteria POC Troponin I 0.01 01/14/22 01/15/22 01/15/22 17:58 05:55 05:55 WBC 6.20 RBC 3.94 L Hgb 11.5 L Hct 35.2 L MCV 89 MCH 29 MCHC 33 RDW Coeff of Reji Plt Count 328 Neut % (Auto) Lymph % (Auto) Sharp % (Auto) Eos % (Auto) Baso % (Auto) Neut # (Auto) Lymph # (Auto) Sharp # (Auto) Eos # (Auto) Baso # (Auto) Abs Immat Gran (auto) Imm/Tot Granulo (auto) VBG pH VBG pCO2 VBG pO2 VBG HCO3 Sodium Potassium Chloride Carbon Dioxide BUN Creatinine Estimated Creat Clear Estimated GFR Glucose Lactate Calcium Phosphorus 2.6 Magnesium 2.0 Iron TIBC % Saturation Troponin I < 0.01 L NT-Pro-B Natriuret Pep 416 H Triglycerides 93 Cholesterol 113 LDL Cholesterol, Calc 60 HDL Cholesterol 34 L Procalcitonin 0.66 H TSH Urine Color Yellow Urine Appearance Clear Urine pH 8.0 Ur Specific [place] 1.020 Urine Protein Negative Urine Glucose (UA) Negative Urine Ketones 2+ A Urine Blood Negative Urine Nitrite Negative Urine Bilirubin Negative Urine Urobilinogen 0.2 Ur Leukocyte Esterase Negative Urine RBC 0-2 Urine WBC 0-2 Ur Squamous Epith Cells None Urine Bacteria None POC Troponin I 01/15/22 01/15/22 01/15/22 05:55 05:55 05:55 WBC RBC Hgb Hct MCV MCH MCHC RDW Coeff of Reji Plt Count Neut % (Auto) Lymph % (Auto) Sharp % (Auto) Eos % (Auto) Baso % (Auto) Neut # (Auto) Lymph # (Auto) Sharp # (Auto) Eos # (Auto) Baso # (Auto) Abs Immat Gran (auto) Imm/Tot Granulo (auto) VBG pH 7.420 VBG pCO2 42 VBG pO2 42.2 VBG HCO3 27 Sodium Potassium Chloride Carbon Dioxide BUN Creatinine Estimated Creat Clear Estimated GFR Glucose Lactate 0.9 Calcium Phosphorus Magnesium Iron 41 L TIBC 242 L % Saturation 17 L Troponin I NT-Pro-B Natriuret Pep Triglycerides Cholesterol LDL Cholesterol, Calc HDL Cholesterol Procalcitonin TSH 4.020 Urine Color Urine Appearance Urine pH Ur Specific [place] Urine Protein Urine Glucose (UA) Urine Ketones Urine Blood Urine Nitrite Urine Bilirubin Urine Urobilinogen Ur Leukocyte Esterase Urine RBC Urine WBC Ur Squamous Epith Cells Urine Bacteria POC Troponin I
[2022-01-15 15:00] VITALS: BP 137/87; PULSE 82; RESP 16; TEMP 36.9; O2SAT 96
--- NOTE | 2022-01-15 18:58 | PC.NURSE ---
End of Shift: Patient pleasant and cooperative, patient can by aggressive and combative at times. Patient does not like to have diaper changed. Patient was 2 assist this morning to the chair, EZ stand was used for remainder of day. Patient denies pain and is only oriented to self. Patient tolerating regular diet, being fed, as he will just sit or potentially spill food. Patient urinating well, no BM this shift. Patient with abrasion to head, shoulder, knee and right chest. Knee with mepilex, rest of the abrasions open to air. Son Jaden visited today and will be back tomorrow. Other brother Marcel is POA but [place].
[2022-01-15 19:00] VITALS: BP 127/90; PULSE 77; RESP 18; TEMP 37.2; O2SAT 97
[2022-01-15] MEDS: PRAMIPEXOLE 0.5 MG TABLET PO (21:07)
[2022-01-15] MEDS: 0.9 % SODIUM CHLORIDE 250 ml IV (22:38)
[2022-01-15 23:00] VITALS: BP 121/94; PULSE 81; RESP 18; TEMP 37.2; O2SAT 97
[2022-01-16] VITALS (10 sets, daily range): BP systolic 120–147; BP diastolic 48–83; PULSE 76–94; RESP 18–24; TEMP 36.6–37.2; O2SAT 93–97
--- NOTE | 2022-01-16 05:26 | PC.NURSE ---
Shift note: Pt appears weak, unable to ambulate except with E stand. Unable to communicate clearly. V/S WNL. Pt is resistive to care and combative at times.
[2022-01-16] MEDS: OMEPRAZOLE 20 MG CAPSULE DR PO (06:34)
[2022-01-16] MEDS: CARBIDOPA-LEVODOPA 25-100 TABLET 1.5 TAB PO ×4 (09:34→20:19)
[2022-01-16] MEDS: SODIUM CHLORIDE 0.9 % (FLUSH) 10 ML SYRINGE 5 ML IVF ×2 (09:35→20:21)
--- NOTE | 2022-01-16 11:21 | RESP.RT ---
Patient sitting up in chair, on room air, breathing regular/easy, respiratory rate 22/minute. BBS good air movement, fine wet crackles noted. Patient has good to excellent cough, swallows secretions
--- NOTE | 2022-01-16 13:46 | PM.IMPN1 ---
Progress Note: A&P Assessment and plan (1) COVID: Problem details: Diagnosed 01/11/2022. Started remdesivir 01/14/22. No hypoxia, treat with remdesivir day 33. 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 Now insulin requiring. Status: Acute Assessment and Plan: Better control today with diabetic diet. Continue long-acting insulin at current dosing and insulin sliding scale with meals and at bedtime. (6) Fall: Problem details: 01/14/2022, sustained minor abrasions only Status: Acute Plan 71 y/o male with acute COVID and chronic parkinsonism. Despite admission and starting Remdesivir, now day 3/3, patient continues to decline in become weaker with poorer appetite. I spoke with the patient's son, Jaden, today to give him an update and noted that overall this is a poor prognostic sign. He demonstrated understanding. Time Spent With Patient Total time spent: Today I spent 35 minutes rounding on the patient. Greater than 50% included discussing care with the team, the patient's son, reviewing data, updating and managing the care plan. Subjective Time Seen by Provider: 12:00 Date Seen: 01/16/22 Interval history: According to Gerber's nurse, Gerber has been more tired and weaker today. He is not eating much at all. Gerber's voice is very quiet and he is not moving his lips much, so he is very difficult to understand. He did laugh with a weak chuckle when I noted that it was difficult to understand him. Exam Narrative: Exam Narrative: General: No acute distress. Sleeping, arousable. Mumbling and weeks speech to the point where I cannot understand him. No pallor. No jaundice. Oropharynx: Clear. Mucous membranes moist. Cardiovascular: Regular rate and rhythm. Respiratory: Clear to auscultation bilaterally. No wheezes or crackles. Abdomen: Bowel sounds present. Soft, nondistended, nontender. Const: Vital Signs, click to edit/add: Vital Signs - 24 hr 01/15/22 15:00 01/15/22 15:00 01/15/22 15:00 Temperature 98.4 F Pulse Rate [Left P ulse Oximeter] 82 82 Respiratory Rate 16 16 16 Blood Pressure [Le ft Arm] Blood Pressure [Ri ght Arm] 137/87 Pulse Oximetry 96 96 Oxygen Delivery Me thod Room Air Room Air 01/15/22 19:00 01/15/22 23:00 01/15/22 23:00 Temperature 98.9 F 98.9 F Pulse Rate [Left P ulse Oximeter] 77 81 Respiratory Rate 18 18 18 Blood Pressure [Le ft Arm] Blood Pressure [Ri ght Arm] 127/90 H 121/94 H Pulse Oximetry 97 97 97 Oxygen Delivery Me thod Room Air Room Air Room Air 01/16/22 03:00 01/16/22 09:45 01/16/22 09:45 Temperature 97.9 F 98.0 F Pulse Rate [Left P ulse Oximeter] 77 76 Respiratory Rate 18 18 18 Blood Pressure [Le ft Arm] Blood Pressure [Ri ght Arm] 124/81 133/76 Pulse Oximetry 97 93 93 Oxygen Delivery Me thod Room Air Room Air Room Air 01/16/22 09:48 01/16/22 11:16 01/16/22 12:09 Temperature 98.2 F Pulse Rate [Left P ulse Oximeter] 76 88 Respiratory Rate 18 22 22 Blood Pressure [Le ft Arm] 120/48 L Blood Pressure [Ri ght Arm] Pulse Oximetry 93 94 Oxygen Delivery Me thod Room Air Room Air Documenting provider has reviewed patient's vital signs: yes
--- NOTE | 2022-01-16 17:02 | PC.NURSE ---
Addendum entered by Jas Mendez RN 01/16/22 17:12: butt is red and he was turned and repositioned, Mepilex was used but took it off as it was soiled from bm;s Addendum entered by Jas Mendez RN 01/16/22 17:10: he is a feeder, he does better with purred foods. pills are whole but he does chew them Original Note: End of Shift, Pt, is very resistive to any/all cares, he does have dementia sadly. he is alert x1. he said he had no pain this am and afternoon/. he mumbles at times and is hard to understand. SL is patent in the right hand. he was incontinent to bowel and bladder 3 times today. he had 3 large wets and 2 smears and a med bm. teds and on and off. he has a terrible sounding wet cough. RT was in to see. he can clear his airway. he is on covid precautions. he does stiffen up with cares and trying to hit staff with cares. he is up with 2 assist and a pal lift. he is a fall risk and alarms are on.
[2022-01-16] MEDS: ACETAMINOPHEN 325 MG TABLET 650 MG PO (17:54)
[2022-01-16] MEDS: PRAMIPEXOLE 0.5 MG TABLET PO (20:20)
[2022-01-17 02:53] VITALS: BP 151/88; PULSE 90; RESP 18; TEMP 36.8; O2SAT 93
--- NOTE | 2022-01-17 04:14 | PC.NURSE ---
Pt incoherent this night. Unable to speak, speech mumbled. Pt seldom opens eyes. Pt resists cares. Incontinent of Bowel and urine. VS unremarkable. Pills crushed in applesauce.
[2022-01-17] MEDS: CARBIDOPA-LEVODOPA 25-100 TABLET 1.5 TAB PO ×2 (09:21→14:42)
[2022-01-17 09:31] VITALS: TEMP 37.5
[2022-01-17] MEDS: ACETAMINOPHEN 325 MG TABLET 650 MG PO (09:31)
--- NOTE | 2022-01-17 10:58 | ONC.NURNOTE ---
patient sleeping on and off. some confusion. did not give meds and insulin untill pt awake enough to swallow. 930 pt more awake on and off. asking for applesauce. oj and ice cream. small amouts at a time and am meds crushed in applesauce. family here and poa will be here at 230 pm for family conference.
[2022-01-17 11:04] VITALS: O2SAT 96
--- NOTE | 2022-01-17 14:35 | P.IMPN_ITS ---
Progress Note: A&P Assessment and plan (1) COVID: Problem details: Diagnosed 01/11/2022. Started remdesivir 01/14/22. No hypoxia, treated with 3 days of remdesivir. There has been no improvement, in fact he has been declining daily. 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 Now insulin requiring. Status: Acute (6) Fall: Problem details: 01/14/2022, sustained minor abrasions only Status: Acute Plan 71 y/o male with acute COVID and chronic parkinsonism. Despite admission and completing a 3 day course of Remdesivir he continues to decline. He is incontinent urine and stool and unable to do any cares for himself. His mental status has declined and he is sleeping most of the time with brief periods of agitation awake. Poor prognosis. Family demonstrated understanding and desires comfort cares. I will start comfort cares and discontinue most of his regular medications since he is getting weaker and no longer able to take p.o. well. Time Spent With Patient Total time spent: Today I spent 60 minutes rounding on the patient, having multiple discussions with family members and the care team, and participating in a care conference for end of life discussion. Subjective Time Seen by Provider: 08:30 Date Seen: 01/17/22 Interval history: Gerber is much less responsive today. I spoke with his son Jaden this morning and asked him to come in to see his dad and for us to have a care conference that included Marcel who is the power of solar project manager. Many family members came and visited Gerber today. At 2:30 p.m. we had a care conference that included about 10 family members including all of the patient's children and several of the grandchildren. They told me that even at baseline prior to getting COVID, he lives in memory care where everything is done for him. We discussed his decline over the last few days, that he has now completed his course of Remdesivir, the effect that his comorbidities and pre-existing frailty have on his current condition, what comfort cares would look like and the at his prognosis if he continues this course is likely days to weeks. They all demonstrated understanding and noted that he seemed uncomfortable when they were there. The each requested that he be on comfort cares. Marcel confirmed that this is also his decision. We discussed whether not it was possible for Gerber's who has COVID to come and visit. They mentioned that she is in memory care and said that there would always be someone with her so that our staff would not be responsible for her cares. We also discussed possible options for discharge si nce he may still have weeks yet, including to 1 of their houses with hospice or a [place] [facility] with hosp[facility]. I noted that it was unlikely that [facility] could take him back with his level of care needs. Exam Narrative: Exam Narrative: General: Sleeping, minimally arousable. Moans. Unintelligible mumbling. Cardiovascular: Regular rate and rhythm. Respiratory: Clear to auscultation bilaterally. No wheezes or crackles. Const: Vital Signs, click to edit/add: Vital Signs - 24 hr 01/16/22 14:56 01/16/22 16:25 01/16/22 16:25 Temperature 98.9 F Pulse Rate [Left P ulse Oximeter] 94 94 Respiratory Rate 22 22 24 Blood Pressure [Le ft Arm] 147/83 H Blood Pressure [Ri ght Arm] Pulse Oximetry 94 94 Oxygen Delivery Me thod Room Air Room Air 01/16/22 20:00 01/16/22 22:41 01/16/22 22:42 Temperature 98.2 F 98.2 F Pulse Rate [Left P ulse Oximeter] 94 94 Respiratory Rate 18 18 Blood Pressure [Le ft Arm] Blood Pressure [Ri ght Arm] 131/70 145/81 H Pulse Oximetry 94 94 94 Oxygen Delivery Me thod Room Air Room Air Room Air 01/16/22 22:42 01/17/22 02:53 01/17/22 09:31 Temperature 98.2 F 99.5 F Pulse Rate [Left P ulse Oximeter] 94 90 Respiratory Rate 18 18 Blood Pressure [Le ft Arm] Blood Pressure [Ri ght Arm] 151/88 H Pulse Oximetry 93 Oxygen Delivery Me thod Room Air 01/17/22 11:04 Temperature Pulse Rate [Left P ulse Oximeter] Respiratory Rate Blood Pressure [Le ft Arm] Blood Pressure [Ri ght Arm] Pulse Oximetry 96 Oxygen Delivery Me thod Room Air Documenting provider has reviewed patient's vital signs: yes
--- NOTE | 2022-01-17 15:59 | ONC.NURNOTE ---
pt appeared anxious late am. family requested something to calm him. Discussed with Chepe Quintana x2. at noon family left room and attempted to change and reposition pt. no would not cooporate. left room and pt slept till 1430. appeared comfortable. HOB elevated at all times. at 1440 with assist of NA. did mouth cares , bath. changed lg incontient attends . back rub and repositioned pt on his side. at that time he did take sips of water and parkinsons meds crushed in applesauce. swallows small amts liquids at a time well. Joined care conference at [address] Mo request. Pt changed to comfort care at 1515.
[2022-01-17] MEDS: LORazepam 2 MG/ML inj IVP ×2 (16:21→20:07)
[2022-01-17] MEDS: SODIUM CHLORIDE 0.9 % (FLUSH) 10 ML SYRINGE 5 ML IVF ×2 (16:22→20:55)
[2022-01-17] MEDS: MORPHINE 10 MG/0.5 ML ORAL SOLN PO ×2 (17:18→18:31)
[2022-01-17] MEDS: HYOSCYAMINE SULFATE 0.125 MG TAB SUBLINGUAL (18:21)
--- NOTE | 2022-01-17 23:01 | PC.NURSE ---
Shift [id number]- Patient is not wakeful throughout shift. He appears bothered with repositioning and pericares- moaning, grimacing, moving extremities- particularly this afternoon. PRN medications administered for comfort- see eMAR. He is open-mouthed breathing- oral swabs and vaseline administered. He is turned and repositioned with pillows for offloading. BM X2 this shift. Occasional cough.
[2022-01-18] MEDS: LORazepam 2 MG/ML inj IVP ×5 (00:53→16:34)
[2022-01-18] MEDS: MORPHINE 10 MG/0.5 ML ORAL SOLN PO ×5 (00:53→16:34)
[2022-01-18] MEDS: SODIUM CHLORIDE 0.9 % (FLUSH) 10 ML SYRINGE 5 ML IVF ×3 (00:54→13:26)
--- NOTE | 2022-01-18 06:50 | PC.NURSE ---
[id number]: Patient on comfort cares. T&R, pad changes, and oral cares Q2-3H. PRN Ativan x2 and Morphine x2 for comfort. Mepilex to L. knee and L. shoulder C/D/I.
--- NOTE | 2022-01-18 11:43 | PM.IMPN1 ---
Progress Note: A&P Assessment and plan (1) COVID: Problem details: Diagnosed 01/11/2022. Started remdesivir 01/14/22. No hypoxia, treated with 3 days of remdesivir. There has been no improvement; declining daily. Status: Acute (2) General weakness: Status: Acute (3) Unstable gait: Status: Acute (4) Parkinson disease: Problem details: - Likely complicating recovery from Covid Status: Acute (5) Fall: Problem details: 01/14/2022, sustained minor abrasions only Status: Acute Plan 71 y/o male with acute COVID and chronic parkinsonism. Despite admission and completing a 3 day course of Remdesivir he continues to decline and has a poor prognosis. Continue comfort cares. I spoke with SW today about the possibility of discharge on hospice. Covid positive status complicates the discharge. Subjective Time Seen by Provider: 10:00 Date Seen: 01/18/22 Interval history: Gerber was placed on comfort cares per discussion with family yesterday afternoon. He is comfortable today with occasional episodes of agitation. He is not eating or drinking and is requiring complete cares. Exam Narrative: Exam Narrative: General: Comfortable. Sleeping. Cardiovascular: Regular rate and rhythm. . Respiratory: Fine bibasilar crackles.
--- NOTE | 2022-01-18 14:13 | PC.SOCIAL ---
DEZ Hadley at [facility] @ [phone] called for an update on pt. Confirmed pt. is now comfort care and the staff at [facility] cannot accommodate end of life care. A message was left with [facility] for end of life care to see if they can accept pt. after 01/24 when pt. is 10 days out from COVID. data services developer will follow-up with pt.'s sons once facility openings are established.
[2022-01-18] MEDS: HYOSCYAMINE SULFATE 0.125 MG TAB SUBLINGUAL (17:11)
--- NOTE | 2022-01-18 21:53 | PC.NURSE ---
Obey's home contacted per family request.
--- NOTE | 2022-01-18 23:52 | PC.NURSE ---
Pt repositioned at 1630 and PRN Ativan and Morphine given. Family at bedside. Field Pipe Lines Supervisor discussed visitation with stepdaughter and son, planning for pt's to visit tomorrow morning. At time for repositioning, pt was found to be . Family had been at bedside. Time of : 1919. Pt cleansed and gown changed. Additional family gathered in pt's room and home arrived to remove his body at 2215. Belongings sent with pt's family aside from gold band remaining on pt's left hand when sent with home.
--- NOTE | 2022-01-19 07:47 | P.DS_ITS ---
Discharge Sum: Prov Provider Date Seen: 01/18/22 Primary care physician: Hermelindo Paiz MD Consults: 01/14/22 19:13 Consult to Physical Therapy [CONS] Routine Comment: Reason(s) for PT Consult:: Evaluate and Treat Any Restrictions?:: No Restrictions Consult to Manager Regional Sales [CONS] Routine Comment: Reason for Consult:: Discharge Planning Needs 01/14/22 19:17 Consult to Occupational Therapy [CONS] Routine Comment: Reason(s) for OT Consult:: Evaluate and Treat Any Restrictions?:: No Restrictions Discharge Sum: Diag Contributing Factors (1) COVID: (2) General weakness: (3) Unstable gait: (4) Parkinson disease: (5) Fall: (6) Diabetes mellitus type 2 with complications: (7) Hypoglycemic reaction: (8) Episode of unresponsiveness: Discharge Sum: Summary Date and Time Date of admission: 01/17/22 12:08 Summary Details: This is a 71-year-old male with history of parkinsonism and diabetes was in his usual state of health until 01/11/2022 when he was not feeling well and tested positive for COVID. He had progressive weakness, a fall and an episode of symptomatic hypoglycemia. He was admitted. He was not hypoxic. He was given 3 days of IV Remdesivir, but continued to decline despite treatment. Weakness progressed so that he was hardly moving, he was not eating or drinking and was complete cares, including incontinent of both urine and stool. In discussion with his family including his POA, son Marcel, the decision was made to make him comfort cares. He peacefully with his family at bedside. Additional Data Attending physician: Chinedu Pena MD
== END 2022-01-18 19:20 | disposition expired | DRG 179 ==
LOC: ED 17:56 → MEDSURG 18:31
PROVIDERS: Admitting Provider Internal Medicine; Emergency Provider Family Medicine; PCP Surgery; Visit Provider Internal Medicine
DX: U07.1 COVID-19 (principal); R53.1 Weakness; E11.649 Type 2 diabetes mellitus with hypoglycemia without coma; Z79.4 Long term (current) use of insulin; G20 Parkinson's disease; K22.70 Barrett's esophagus without dysplasia; I25.10 Atherosclerotic heart disease of native coronary artery without angina pectoris; E78.5 Hyperlipidemia, unspecified; M54.30 Sciatica, unspecified side; H90.5 Unspecified sensorineural hearing loss; R26.89 Other abnormalities of gait and mobility; Z91.81 History of falling; T14.8XXA Other injury of unspecified body region, initial encounter; W19.XXXA Unspecified fall, initial encounter
CPT/HCPCS: 36415; 70450; 80048; 80061; 81001; 82803; 82962; 83540; 83550; 83605; 83735; 83880; 84100; 84145; 84443; 84484; 85025; 85027; 93005; 97162; 97166; 97530; 99281; 99284; 99285; A9270; G0378; J2060; J7030; J7050